=== PATIENT | female | born 2000 | race Caucasian/White ===

== ENCOUNTER 2018-06-22 10:00 | Emergency (ER) | payer OTHER ==
[~2018-06-22] VITALS: Ht 160 cm; Wt 59.0 kg
[2018-06-22 10:04] VITALS: BP 146/71; PULSE 94; RESP 19; Ht 160 cm; Wt 59.0 kg
[2018-06-22] MEDS ORDERED: IBUPROFEN 600 MG TAB PO ONE (12:00)
[2018-06-22] MEDS ORDERED: CYCL10TA7 PO (13:08)
[2018-06-22] MEDS ORDERED: IBUP-1561 PO (13:08)
--- NOTE | 2018-06-22 14:16 | ERD ---
ER Documentation Chief Complaint Chief Complaint left lower back pain x 3 days HPI 17-year-old female with history of back surgery for scoliosis presents emergency room complaining of left lower back pain for the past 3 days that it is nonradiating. Rates it moderate in severity. Patient states she not taking any medication for this. Denies any dysuria, fevers, hematuria ROS All systems reviewed and are negative except as per history of present illness. Medications Home Meds Active Scripts Cyclobenzaprine Hcl* (Cyclobenzaprine Hcl*) 10 Mg Tablet, 10 MG PO TID, #15 TAB Prov:BENOIT ROSADO PA-C 06/22/18 Ibuprofen* (Motrin*) 400 Mg Tab, 400 MG PO Q6H PRN for PAIN AND OR ELEVATED TEMP, #30 TAB Prov:BENOIT ROSADO PA-C 06/22/18 PMhx/Soc Medical and Surgical Hx: pt denies Medical Hx, pt denies Surgical Hx Hx Alcohol Use: No Hx Substance Use: No Hx Tobacco Use: No Smoking Status: Never smoker Physical Exam Vitals Vital Signs Date Temp Pulse Resp B/P (MAP) Pulse Ox O2 O2 Flow FiO2 Time Delivery Rate 06/22/18 97.6 94 19 146/71 100 10:04 (96) Physical Exam Const: No acute distress Head: Atraumatic Eyes: Normal Conjunctiva ENT: Normal External Ears, Nose and Mouth. Neck: Full range of motion. No meningismus. Resp: Clear to auscultation bilaterally Cardio: Regular rate and rhythm, no murmurs Abd: Soft, non tender, non distended. Normal bowel sounds Skin: No petechiae or rashes Back: Tender palpation in the left lumbar region, negative spinal tenderness Ext: No cyanosis, or edema Neur: Awake and alert Psych: Normal Mood and Affect Results 24 hrs Laboratory Tests Test 06/22/18 11:58 06/22/18 11:59 Bedside Urine pH (LAB) 5.5 Bedside Urine Protein (LAB) Trace Bedside Urine Glucose (UA) Negative Bedside Urine Ketones (LAB) Negative Bedside Urine Blood Trace-intact Bedside Urine Nitrite (LAB) Negative Bedside Urine Leukocyte Esterase (L Negative POC Beta HCG, Qualitative NEGATIVE Current Medications Medications Dose Sig/Rusty Start Time Status Last (Trade) Ordered Route PRN Stop Time Admin Dose Reason Admin Ibuprofen 600 mg ONCE ONCE 06/22/18 DC 06/22/18 (Motrin) PO 12:00 11:53 06/22/18 12:01 Procedures/MDM 17-year-old female presents emerged from complaining of left lumbar back pain likely due to strain. Patient is neurovascular intact, she has stable vital signs. No signs of cauda equina. X-ray was done not any evidence of acute pathology. Patient has mild lumbosacral sclerosis. Patient was given prescription for Flexeril and ibuprofen and instructions to follow with the primary care physician to get referral for PT. Return precautions given she understands risk Departure Diagnosis: Primary Impression: Back pain Condition: Stable Patient Instructions: Back Pain (Acute Or Chronic) Referrals: DOCTOR,NOT ON STAFF (PCP) Additional Instructions: FOLLOW UP WITH YOUR PRIMARY CARE PHYSICIAN TOMORROW.Return to this facility if you are not improving as expected. Referral for PT You have been given a medicine which may cause drowsiness.DO NOT DRIVE OR OPERATE DANGEROUS MACHINERY while taking this medicine! BENOIT ROSADO PA-C Jun 22, 2018 14:16
== END 2018-06-22 13:21 | disposition home or self-care (01) ==
LOC: FTE 10:00
DX: M54.5 Low back pain (principal)
CPT/HCPCS: 72100; 81003; 81025; Z7502; Z7610